=== PATIENT | male | born 1950 | race Caucasian/White ===

== ENCOUNTER → 2016-10-07 | Outpatient (CLI) | payer BC ==
--- NOTE | 2016-10-07 18:06 | PCVCIMAG ---
EXAM: BILATERAL CAROTID DUPLEX INDICATION: Carotid Occlusive Disease. FINDINGS: Doppler Measurements (centimeters per second): RIGHT: Peak CCA-158, Peak ECA-215, Diastolic ICA-49, Peak ICA-208, ICA/CCA Ratio-1.3. LEFT: Peak CCA-388, Peak ECA-284, Diastolic ICA-53, Peak ICA-298, ICA/CCA Ratio-0.8. RIGHT CAROTID: The carotid bulb has moderate plaque. The proximal internal carotid artery shows 60% stenosis. The common carotid artery shows less than 50% stenosis. The external carotid artery shows 60% stenosis. LEFT CAROTID: The carotid bulb has moderate plaque. The proximal internal carotid artery shows 75% stenosis. The common carotid artery shows 70% stenosis. The external carotid artery shows 70% stenosis. Antegrade flow in both vertebral arteries. IMPRESSION: 60% stenosis of the right internal carotid artery with moderate plaque. 75% stenosis of the left internal carotid artery with moderate plaque. 70% stenosis mid/upper left common carotid artery. No change since September 2015 study. LOC:[id number]
== END | disposition home or self-care (01) ==
LOC: PCVCIMAG 11:18
PROVIDERS: ATTEND Internal Medicine Cardiovascular Disease
DX: I65.23 Occlusion and stenosis of bilateral carotid arteries (principal); I10 Essential (primary) hypertension; I73.9 Peripheral vascular disease, unspecified; I25.10 Atherosclerotic heart disease of native coronary artery without angina pectoris; E78.00 Pure hypercholesterolemia, unspecified
CPT/HCPCS: 80061; 93005; 93880; G0463